=== PATIENT | female | born 1990 | race Caucasian/White ===

== ENCOUNTER → 2020-01-03 | Outpatient (CLI) | payer OTHER | LOC: COL.RAD 09:33 | DX: R10.11 Right upper quadrant pain (principal); R11.0 Nausea; R19.7 Diarrhea, unspecified | CPT/HCPCS: A9537; J2805 ==

== ENCOUNTER 2020-02-09 11:29 | Day surgery (SDC) | payer OTHER ==
[~2020-02-09] VITALS: Ht 177.8 cm; Wt 74.8 kg
[2020-02-09 12:38] VITALS: BP 109/65; PULSE 72; TEMP 98.5
[2020-02-09] MEDS ORDERED: XYZAL5 MG PO (12:45)
[2020-02-09] MEDS ORDERED: ZOLOFT20 MG/ML PO (12:46)
[2020-02-09] MEDS ORDERED: MOTRIN 600600 MG/TAB PO (14:00)
[2020-02-09] MEDS ORDERED: NORCO 325 MG-51 TAB PO (14:00)
[2020-02-09] MEDS ORDERED: ZOFRAN ODT4 MG PO (14:00)
[2020-02-09 16:00] VITALS: BP 125/67; PULSE 63; TEMP 98
--- NOTE | 2020-02-09 16:00 | NUR ---
Pt to [facility] via cart from PACU. Pt drowsy, but awake. Pt rates pain 3/10 to abdomen. Pt denies nausea. Exophen to abdomen x4 is clean, dry, and intact. Pt wanting to sleep. Call light within reach.
[2020-02-09 16:15] VITALS: BP 129/74; PULSE 50
--- NOTE | 2020-02-09 16:15 | NUR ---
Pt sleeping. Respirations even and unlabored. Call light within reach.
[2020-02-09] MEDS ORDERED: Work Release (16:16)
[2020-02-09 16:30] VITALS: BP 128/68; PULSE 52
--- NOTE | 2020-02-09 16:30 | NUR ---
Pt continues to sleep. Respirations even and unlabored. Call light within reach.
[2020-02-09 16:45] VITALS: BP 117/55; PULSE 65
--- NOTE | 2020-02-09 17:00 | NUR ---
Patient awake and tolerating jello and apple sauce. Complains of incisional abdominal pain, minimal. PRN pain medication given.
--- NOTE | 2020-02-09 17:15 | NUR ---
Dismissal instructions gone over with patient. Patient voices understanding and all questions answered.
--- NOTE | 2020-02-09 17:25 | NUR ---
Patient comlains of slight nausea. Telephone order obtained from Dr Chau for Lesly ODT and administered.
--- NOTE | 2020-02-09 17:40 | NUR ---
Patient dismissed to ER enterance via wheelchair to private vehicle her is driving. Patient and family leave thanking staff for services.
== END 2020-02-09 17:40 | disposition home or self-care (01) ==
LOC: SDCO 11:29
DX: K81.1 Chronic cholecystitis (principal); K83.8 Other specified diseases of biliary tract; Z88.8 Allergy status to other drugs, medicaments and biological substances; Z91.012 Allergy to eggs; Z20.828 Contact with and (suspected) exposure to other viral communicable diseases
CPT/HCPCS: J0330; J0690; J1100; J2250; J2405; J2550; J2704; J3010; J7120; Q9967

== ENCOUNTER → 2020-04-12 | Outpatient (CLI) | payer OTHER ==
[~2020-04-12] MED LIST: MOTRIN 600600 MG/TAB PO; NORCO 325 MG-51 TAB PO; Work Release; XYZAL5 MG PO; ZOFRAN ODT4 MG PO; ZOLOFT20 MG/ML PO
== END ==
LOC: COL.LAB 14:41
DX: K58.9 Irritable bowel syndrome, unspecified (principal)

== ENCOUNTER 2020-05-23 14:41 | Emergency (ER) | payer OTHER ==
[~2020-05-23] VITALS: Ht 177.8 cm; Wt 70.5 kg
[2020-05-23 14:48] VITALS: TEMP 98.8
[2020-05-23 15:11] LABS: COLLECTION METHOD CLEAN CATCH
[2020-05-23 15:19] LABS: BASO % 0.2 % (0.0-2.0); EOS % 0.1 % (0-4.0); GRAN # 8.8 (1.4-6.5); HEMATOCRIT 39.3 % (37.0-47.0); HEMOGLOBIN 13.6 g/dl (12.5-16.0); LYMPH # 1.1 (1.2-3.4); LYMPH % 10.2 % (20.0-51.0); MEAN CELL VOLUME 90 fl (80.0-100.0); MEAN CORPUSCULAR HEMOGLOBIN 31 pg (27.0-31.0); MEAN CORPUSCULAR HGB CONC 35 g/dl (33.0-37.0); MEAN PLATELET VOLUME 10.2 fl (7.4-10.4); MONO # 0.4 (0.1-0.6); MONO % 4.2 % (1.7-9.3); PLATELET COUNT 289 K/mm3 (130-400); RED BLOOD COUNT 4.37 M/mm3 (4.10-5.30); REDCELL DISTRIBUTION WIDTH-CV 11.3 % (11.5-14.5)
[2020-05-23 15:20] LABS: ALBUMIN 4.4 gm/dL (3.5-5.0); BILIRUBIN,TOTAL 0.7 mg/dL (0.0-1.0); CALCIUM 9.2 mg/dL (8.4-10.2); CREATININE, serum 0.57 (0.52-1.25); POTASSIUM 3.7 mmol/L (3.4-5.0); TOTAL PROTEIN 7.9 gm/dL (6.4-8.2)
[2020-05-23 15:28] LABS: MUCOUS Present /lpf; PH 5 (5-8); URINE APPEARANCE Cloudy; URINE BACTERIA None Seen /hpf; URINE BILIRUBIN Negative (NEGATIVE); URINE BLOOD Negative (NEGATIVE); URINE COLOR Amber; URINE GLUCOSE Negative (NEGATIVE); URINE KETONE 2+ (NEGATIVE); URINE LEUKOCYTE ESTERASE Negative (NEGATIVE); URINE NITRATE Negative (NEGATIVE); URINE PROTEIN(semi-quant) 2+ (NEGATIVE); URINE UROBILINOGEN Negative (NEGATIVE)
[2020-05-23 19:07] VITALS: BP 121/76; PULSE 60
== END 2020-05-23 19:07 | disposition home or self-care (01) ==
LOC: COL.ER 14:41
PROVIDERS: Physician Assistant
DX: O21.1 Hyperemesis gravidarum with metabolic disturbance (principal); O99.411 Diseases of the circulatory system complicating pregnancy, first trimester; I95.1 Orthostatic hypotension; Z88.1 Allergy status to other antibiotic agents; Z3A.08 8 weeks gestation of pregnancy; Z88.8 Allergy status to other drugs, medicaments and biological substances
CPT/HCPCS: J2765; J7030

== ENCOUNTER → 2021-05-08 | Outpatient (CLI) | payer OTHER | LOC: COL.RAD 07:51 | DX: M25.552 Pain in left hip (principal) | CPT/HCPCS: A9575; J3301; Q9967 ==